=== PATIENT | male | born 1975 | race Caucasian/White ===

== ENCOUNTER 2016-08-04 08:38 | Emergency (ER) | payer OTHER ==
[~2016-08-04] VITALS: Ht 172.7 cm; Wt 104.1 kg
[~2016-08-04 08:38] MED LIST: HYDR25TA5 PO; METO50TA16 PO; PRLSR20 PO; ZOLP10TA6 PO
[2016-08-04 08:41] VITALS: TEMP 37; Ht 172.7 cm; Wt 104.1 kg
--- NOTE | 2016-08-04 09:13 | EMERGENCY ROOM VISIT NOTE ---
History First contact with patient: 08:45 Chief Complaint: COUGH Stated Complaint: SOB, HEADACHE, NO VOICE Nursing Triage Summary: pt c/o sorethroat and losing voice for approx 1 week. has productive cough especially when he lies down. feels sob at times. pt reports seasonal allergies History of Present Illness The patient is a 40 year old male who presents to the Emergency Room with complaints of 1 wk hx of progressive cold symptoms including productive cough, soar throat, hoarseness occasional SOB, N/V, 2 days of non-bloody watery diarrhea Headache, fatigue. No fevers/ No chills. NO known sick contacts. Review of Systems See HPI for pertinent positives & negatives. A total of 10 systems reviewed and were otherwise negative. Past Medical/Surgical History Medical Problems: (1) Acute bronchitis (2) Headache (3) HTN (hypertension) (4) Hx of fracture of clavicle (5) Kidney stone (6) Low back pain (7) Maxillary sinus fracture (8) Maxillary sinus fracture (9) Migraine (10) Migraine (11) Migraine (12) Migraine (13) Migraine (14) Migraine headache (15) Migraine headache (16) Posttraumatic Stress Disorder (17) Right rib fracture (18) Rotator cuff injury (19) Rotator cuff injury Surgical Problems: (1) History of lumbar fusion Family History FH: migraines Hypertension Social History Smoking Status: Former Smoker Alcohol Use: none Drug Use: none Marital Status: Housing Status: lives with family Occupation Status: unemployed Current/Historical Medications Scheduled Hydrochlorothiazide (Hydrochlorothiazide), 25 MG PO QAM Metoprolol Tartrate (Lopressor) (Lopressor), 25 MG PO BID Omeprazole (Prilosec), 20 MG PO DAILY Scheduled PRN Benzonatate (Tessalon Perles), 1 CAP PO TID PRN for Cough Allergies Coded Allergies: Zolmitriptan (Verified Allergy, Severe, THROAT SWELLS, 08/04/16) Diphenhydramine (Verified Allergy, Intermediate, "makes me crazy", 08/04/16 ) Shellfish (Verified Allergy, Unknown, THROAT SWELLING, 08/04/16) SHRIMP Nifedipine (Verified Adverse Reaction, Unknown, HEADACHES, 08/04/16) Prednisone (Verified Adverse Reaction, Unknown, Mood changes, 08/04/16) Physical Exam Vital Signs Date Time Temp Pulse Resp B/P Pulse Ox O2 Delivery O2 Flow Rate FiO2 4/10/17 10:49 64 18 135/84 98 08/04/16 10:02 63 18 140/85 98 Room Air 08/04/16 08:41 37.0 73 18 161/105 99 Room Air Physical Exam GENERAL: alert, well appearing, well nourished, no distress, non-toxic EYE EXAM: normal conjunctiva, PERRL and EOM's grossly intact OROPHARYNX: no exudate, no erythema, lips, buccal mucosa, and tongue normal and mucous membranes are moist NECK: supple, no nuchal rigidity, no adenopathy, non-tender LUNGS: Clear to auscultation. Normal chest wall mechanics HEART: no murmurs, S1 normal and S2 normal ABDOMEN: abdomen soft, non-tender, normo-active bowel sounds, no masses, no rebound or guarding. BACK: Back is symmetrical on inspection and there is no deformity, no midline tenderness, no CVA tenderness. SKIN: no rashes and no bruising UPPER EXTREMITIES: upper extremities are grossly normal. LOWER EXTREMITIES: No pitting edema. NEURO EXAM: Normal sensorium, cranial nerves II-XII grossly intact, normal speech, no gross weakness of arms, no gross weakness of legs. Medical Decision & Procedures ER Provider Diagnostic Interpretation: CHEST ONE VIEW PORTABLE CLINICAL HISTORY: Cough and shortness of breath. COMPARISON STUDY: Chest radiograph April 15. FINDINGS: Lung volumes are normal. There is no pneumothorax or pleural effusion. Cardiac size is normal. Mediastinal contours are normal. There is no evidence of pulmonary edema. IMPRESSION: No acute cardiopulmonary findings. Medications Administered Medications (Trade) Dose Ordered Sig/Sami Route Start Time Stop Time Status Last Admin Dose Admin Benzonatate (Tessalon Perles Cap) 100 mg NOW ONCE PO 08/04/16 09:30 08/04/16 09:31 DC 08/04/16 09:43 100 MG Medical Decision Differential diagnoses includes but is not limited to Viral URI pneumonia, bronchitis, COPD/Asthma exacerbation, pneumothorax, pulmonary embolism, congestive heart failure, 40 yo M p/w 1 hx of cough, soar throat, n/v diarrhea x2 days, afebrile, vss - afebile, 98-99% Saturation on rm air, no resp. distress, VSS -CXR: unremarkable -Rapid Streptococcal Test Negative - Patient's symptoms most likely attributed to Acute Viral URI. CXR is not consistent with Pneumonia. No hx of Asthma/COPD, Hx of Heart Conditions. Patient discharged with followup to Primary care provider. Advised patient if symptoms continued beyond 2 wks to go to clinic. He was discharged with prescription for Tessalon pearls. Impression Primary Impression: Upper respiratory infection Departure Information Dispostion Home / Self-Care Condition GOOD Prescriptions Benzonatate (Tessalon Perles) 100 Mg Cap 1 CAP PO TID Y for Cough for 10 Days, #30 CAP Prov: Joseph Nguyen MD 08/04/16 Referrals No Doctor, Assigned (PCP) Patient Instructions My [facility] Resident Tracking Resident Involvement: Resident Care Provided Care Provided: Adult ED Problem Qualifiers Primary Impression: Upper respiratory infection
[2016-08-04] MEDS ORDERED: BENZONATATE 100MG CAP PO ONE (09:30)
--- NOTE | 2016-08-04 09:54 | DIAGNOSTIC IMAGING REPORT ---
CHEST ONE VIEW PORTABLE CLINICAL HISTORY: Cough and shortness of breath. COMPARISON STUDY: Chest radiograph April 15. FINDINGS: Lung volumes are normal. There is no pneumothorax or pleural effusion. Cardiac size is normal. Mediastinal contours are normal. There is no evidence of pulmonary edema. IMPRESSION: No acute cardiopulmonary findings. Electronically signed by: Joshua Soliz M.D. 08/04/2016 9:51 AM Dictated Date/Time: 08/04/2016 9:51 AM
[2016-08-04] MEDS ORDERED: BENZ100C84 PO (10:14)
[2016-08-04 10:49] VITALS: BP 135/84; PULSE 64; O2SAT 98
--- NOTE | 2016-08-04 15:32 | EMERGENCY ROOM VISIT NOTE ---
History Report prepared by Bro: Anshu Simental Under the Supervision of: Dr. Hola Rosa D.O. First contact with patient: 08:45 Chief Complaint: COUGH Stated Complaint: SOB, HEADACHE, NO VOICE Nursing Triage Summary: pt c/o sorethroat and losing voice for approx 1 week. has productive cough especially when he lies down. feels sob at times. pt reports seasonal allergies History of Present Illness The patient is a 40 year old male who presents to the Emergency Room with complaints of persistent cough for the past week. He notes that the cough is productive but is not sure what color his coughing up. The patient also complains of worsening sore throat, ear pain, and a hoarse voice which started 2 days ago. The patient notes he hasn't been able to sleep for the past few days because of the cough. Pt denies change in vision, fevers, chest pain, nausea, vomiting, diarrhea, pain with urination, and melena. Source of History: patient Onset: the past week Position: other (global) Timing: other (persistent) Associated Symptoms: + sorethroat, No chest pain, No diarrhea, No fevers, No melena, No nausea, No urinary symptoms, No vomiting Note: Other associated symptoms: ear pain, hoarse voice, difficulty sleeping Denies: changes in vision Review of Systems See HPI for pertinent positives & negatives. A total of 10 systems reviewed and were otherwise negative. Past Medical & Surgical Medical Problems: (1) Acute bronchitis (2) Headache (3) HTN (hypertension) (4) Hx of fracture of clavicle (5) Kidney stone (6) Low back pain (7) Maxillary sinus fracture (8) Maxillary sinus fracture (9) Migraine (10) Migraine (11) Migraine (12) Migraine (13) Migraine (14) Migraine headache (15) Migraine headache (16) Posttraumatic Stress Disorder (17) Right rib fracture (18) Rotator cuff injury (19) Rotator cuff injury Surgical Problems: (1) History of lumbar fusion Family History FH: migraines Hypertension Social History Smoking Status: Former Smoker Alcohol Use: none Drug Use: none Marital Status: Housing Status: lives with family Occupation Status: unemployed Current/Historical Medications Scheduled Hydrochlorothiazide (Hydrochlorothiazide), 25 MG PO QAM Metoprolol Tartrate (Lopressor) (Lopressor), 25 MG PO BID Omeprazole (Prilosec), 20 MG PO DAILY Scheduled PRN Benzonatate (Tessalon Perles), 1 CAP PO TID PRN for Cough Allergies Coded Allergies: Zolmitriptan (Verified Allergy, Severe, THROAT SWELLS, 08/04/16) Diphenhydramine (Verified Allergy, Intermediate, "makes me crazy", 08/04/16 ) Shellfish (Verified Allergy, Unknown, THROAT SWELLING, 08/04/16) SHRIMP Nifedipine (Verified Adverse Reaction, Unknown, HEADACHES, 08/04/16) Prednisone (Verified Adverse Reaction, Unknown, Mood changes, 08/04/16) Physical Exam Vital Signs Date Time Temp Pulse Resp B/P Pulse Ox O2 Delivery O2 Flow Rate FiO2 08/04/16 10:49 64 18 135/84 98 08/04/16 10:02 63 18 140/85 98 Room Air 08/04/16 08:41 37.0 73 18 161/105 99 Room Air Physical Exam GENERAL: sitting up in bed, well appearing, no acute distress, non-toxic EYE EXAM: normal conjunctiva OROPHARYNX: no exudate, no erythema, lips, buccal mucosa, and tongue normal and mucous membranes are moist NECK: supple, no nuchal rigidity, no adenopathy, non-tender LUNGS: Faint wheezing bilaterally. Normal chest wall mechanics HEART: no murmurs, S1 normal and S2 normal ABDOMEN: abdomen soft, non-tender, normo-active bowel sounds, no masses, no rebound or guarding. BACK: Back is symmetrical on inspection and there is no deformity, no midline tenderness, no CVA tenderness. SKIN: no rashes and no bruising UPPER EXTREMITIES: upper extremities are grossly normal. LOWER EXTREMITIES: No pitting edema. NEURO EXAM: Normal sensorium, cranial nerves II-XII grossly intact, normal speech, no gross weakness of arms, no gross weakness of legs. Gross sensation intact. Medical Decision & Procedures ER Provider Diagnostic Interpretation: Radiology results as stated below per my review and the radiologist's interpretation: CHEST ONE VIEW PORTABLE CLINICAL HISTORY: Cough and shortness of breath. COMPARISON STUDY: Chest radiograph April 15. FINDINGS: Lung volumes are normal. There is no pneumothorax or pleural effusion. Cardiac size is normal. Mediastinal contours are normal. There is no evidence of pulmonary edema. IMPRESSION: No acute cardiopulmonary findings. Electronically signed by: Joshua Soliz M.D. 08/04/2016 9:51 AM Dictated Date/Time: 08/04/2016 9:51 AM Medications Administered Medications (Trade) Dose Ordered Sig/Sami Route Start Time Stop Time Status Last Admin Dose Admin Benzonatate (Tessalon Perles Cap) 100 mg NOW ONCE PO 08/04/16 09:30 4 09:31 DC 08/04/16 09:43 100 MG ED Course ED COURSE: Vital signs were reviewed and showed hypertensive. The patients medical record was reviewed The above diagnostic studies were performed and reviewed. ED treatments and interventions as stated above. 0910: The patient was evaluated in room A2. A complete history and physical examination was performed. 0930: Ordered Benzonatate 100 mg PO. 1045: Upon reevaluation, the patient is resting comfortably.I discussed my findings with the patient and he understands and agrees with the treatment plan. Based on the patients age, coexisting illnesses, exam and lab findings the decision to treat as an outpatient was made. The patient remained stable while under my care. The patient appeared well at the time of discharge. Medical Decision Differential diagnoses includes but is not limited to pneumonia, bronchitis, COPD/Asthma exacerbation, pneumothorax, pulmonary embolism, congestive heart failure, acute coronary syndrome Patient is a 40-year-old male that was seen independently with the resident for cough associated with sore throat, earache and loss of voice. Chest x-ray was unremarkable. He is otherwise well-appearing. No infections within the ears. Rapid strep was negative. Patient was updated at bedside and was given Tessalon Perles. He is feeling slightly better. He is discharged follow-up with his primary care doctor with viral laryngitis. Discussed with Pt concerning signs and symptoms to watch out for. Pt was instructed to follow up with their PCP and discussed with the patient their option to return to the ED at anytime for persistent or worsening symptoms. The appropriate anticipatory guidance and out-patient management, including indications for return to the emergency department, were explained at length to the patient and understood. Impression Primary Impression: Upper respiratory infection Scribe Attestation The scribe's documentation has been prepared under my direction and personally reviewed by me in its entirety. I confirm that the note above accurately reflects all work, treatment, procedures, and medical decision making performed by me. Departure Information Dispostion Home / Self-Care Prescriptions Benzonatate (Tessalon Perles) 100 Mg Cap 1 CAP PO TID Y for Cough for 10 Days, #30 CAP Prov: Joseph Nguyen MD 08/04/16 Referrals Leonel Wright D.O. (PCP) Forms HOME CARE DOCUMENTATION FORM, IMPORTANT VISIT INFORMATION Patient Instructions My [facility] Additional Instructions -Please take tessalon pearls as needed for cough -Followup with Primary care provider this week -If symptoms go beyond 2 wks or if you develop fever >100.4, Chest Pain , Shortness of breath, call clinic or return to Emergency Dept -Maintain hydration with oral fluids Problem Qualifiers Primary Impression: Upper respiratory infection URI type: unspecified URI Qualified Codes: J06.9 - Acute upper respiratory infection, unspecified
== END 2016-08-04 10:49 | disposition home or self-care (01) ==
LOC: C.EDB 08:40 → C.EDA 10:49
DX: J06.9 Acute upper respiratory infection, unspecified (principal); I10 Essential (primary) hypertension; F43.10 Post-traumatic stress disorder, unspecified; Z98.1 Arthrodesis status; Z82.49 Family history of ischemic heart disease and other diseases of the circulatory system; Z87.891 Personal history of nicotine dependence; Z79.899 Other long term (current) drug therapy